=== PATIENT | male | born 1990 | race African-American/Black ===

== ENCOUNTER 2018-09-09 10:13 | Emergency (ER) | payer MEDICAID ==
[~2018-09-09] VITALS: Ht 167.6 cm; Wt 61.0 kg
[2018-09-09] MEDS ORDERED: POVIDONE-IODINE 10% TOPICAL SOLN 240ML TOP ONE (11:15)
[2018-09-09] MEDS ORDERED: TETANUS, DIPHTHERIA, PERTUSSIS VAC/PF 0.5ML (>7YR OLD) IM ONE (11:15)
[2018-09-09] MEDS ORDERED: LIDOCAINE HCL/PF 1% 10 MG/ML 30ML VIAL INFIL ONE (11:15)
[2018-09-09] MEDS ORDERED: LIDOCAINE HCL/PF 1% 2ML VIAL INFIL ONE (11:30)
[2018-09-09] MEDS ORDERED: LIDOCAINE HCL/PF 1% 10 MG/ML 5ML VIAL ONE (11:44)
[2018-09-09] MEDS ORDERED: BACITRACIN ZINC OINT UDPKT TOP ONE (12:15)
[2018-09-09 12:41] VITALS: BP 120/82
== END 2018-09-09 12:45 | disposition home or self-care (01) ==
LOC: ER 10:13
DX: S61.511A Laceration without foreign body of right wrist, initial encounter (principal); W45.8XXA Other foreign body or object entering through skin, initial encounter; F17.210 Nicotine dependence, cigarettes, uncomplicated; W13.8XXA Fall from, out of or through other building or structure, initial encounter; W22.8XXA Striking against or struck by other objects, initial encounter; Y93.89 Activity, other specified; Y92.89 Other specified places as the place of occurrence of the external cause
CPT/HCPCS: 12002; 90471; 90715; 99283; A4246; J3490; Z7610

== ENCOUNTER 2018-09-29 13:41 | Emergency (ER) | payer MEDICAID ==
[~2018-09-29] VITALS: Ht 172.7 cm; Wt 68.8 kg
[2018-09-29] MEDS ORDERED: BACITRACIN ZINC OINT UDPKT TOP ONE (15:30)
[2018-09-29 15:55] VITALS: BP 104/73
== END 2018-09-29 16:02 | disposition home or self-care (01) ==
LOC: ER 13:41
DX: S61.511D Laceration without foreign body of right wrist, subsequent encounter (principal); F17.200 Nicotine dependence, unspecified, uncomplicated; F12.10 Cannabis abuse, uncomplicated; X58.XXXD Exposure to other specified factors, subsequent encounter
CPT/HCPCS: 99283